=== PATIENT | male | born 1985 | race Caucasian/White ===

== ENCOUNTER 2018-10-30 21:13 | Inpatient (IN) | payer MEDICAID ==
[~2018-10-30] VITALS: Ht 170.2 cm; Wt 76.2 kg
[2018-10-30 21:15] VITALS: BP 107/58
--- NOTE | 2018-10-30 21:17 | NUR ---
PT [facility]. TAKEN TO BED 2
--- NOTE | 2018-10-30 21:17 | NUR ---
To bed 2 via stretcher.
--- NOTE | 2018-10-30 21:18 | NUR ---
PATIENT PRESENTS ER WITH C/O SEIZURES TODAY. PT FAMILY STATED THAT PT HAD A FEW SEIZURES TODAY. PT HAS HX OF SEIZURES. PT HAS HX OF DRINKING ALCOHOL. PT DID NOT HAVE LOC. KNA. PT IS A/O X 4. PATIENT STATES PAIN OF 0/10 AT THIS TIME; VSS; PATIENT POSITIONED FOR COMFORT; HOB ELEVATED; BEDRAILS UP X2; BED DOWN. ER MD MADE AWARE OF PT STATUS.
[2018-10-30] MEDS ORDERED: NACL 0.9% 1,000 ML IV ONE (21:20)
[2018-10-30 21:52] LABS: BASOPHILS % (AUTO) 0.1 % (0.0-2.0); EOSINOPHILS % (AUTO) 0.1 % (0.0-4.0); LYMPHOCYTES # (AUTO) 2.1 K/uL (2.0-11.5); LYMPHOCYTES % (AUTO) 12.9 % (20.5-51.1); MEAN CORPUSCULAR HEMOGLOBIN 29 pg (27-31); MEAN CORPUSCULAR HGB CONC 31 g/dL (33-37); MEAN CORPUSCULAR VOLUME 91.2 fL (80-94); MONOCYTES # (AUTO) 1.4 K/uL (0.8-1.0); NEUTROPHILS # (AUTO) 12.5 K/uL (1.8-7.7); NEUTROPHILS % (AUTO) 77.9 % (42.2-75.2); PLATELET COUNT (AUTO) 81 K/uL (140-450); RED BLOOD CELL COUNT(AUTO) 1.27 MIL/uL (4.20-6.10); RED CELL DISTRIBUTION WIDTH 18.2 % (11.6-13.7)
[2018-10-30 21:59] LABS: ANION GAP 12.9 (8-16); CARBON DIOXIDE 28.3 mmol/L (21-32); CHLORIDE 92 mmol/L (98-107); CREATININE 1.6 mg/dL (0.7-1.3); GFR ARICAN-AMERICAN 64 mL/min (>90); GLUCOSE 197 mg/dL (74-106); POTASSIUM 3.2 mmol/L (3.5-5.1); SODIUM SERUM 130 mmol/L (136-145); UREA NITROGEN, BLOOD 32 mg/dL (7-18)
[2018-10-30 22:03] LABS: ACETONE, SERUM NEGATIVE (NEGATIVE)
[2018-10-30 22:05] LABS: HEMATOCRIT 11.6 % (36-52); HEMOGLOBIN 3.6 g/dL (12.0-18.0)
[2018-10-30 22:07] LABS: ALBUMIN 2.1 g/dL (3.4-5.0); ASPARTATE AMINOTRANSFERASE 128 U/L (15-37); TOTAL BILIRUBIN 1.3 mg/dL (0.0-1.0)
[2018-10-30] MEDS ORDERED: levETIRAcetam 500 MG in NACL 0.9% 100 ML IV ONE (22:35)
--- NOTE | 2018-10-30 23:00 | NUR ---
PT IS UNABLE TO URINATE AT THIS TIME ER MD MADE AWARE.
[2018-10-30] MEDS ORDERED: levETIRAcetam 100 MG/ML VIAL IV ONE (23:01)
[2018-10-30] MEDS ORDERED: PANTOPRAZOLE 40 MG INJ VIAL IVP ONE (23:35)
--- NOTE | 2018-10-30 23:59 | NUR ---
PT RETURN FROM CT
[2018-10-31] VITALS (10 sets, daily range): BP systolic 95–135; BP diastolic 41–78
--- NOTE | 2018-10-31 00:39 | NUR ---
PT IS RECIEVING BLOOD TRANSFUSION, PT TOLERATED WELL.
--- NOTE | 2018-10-31 00:39 | NUR ---
Consent signed per dr. bonilla order, agreeing to administration of blood. Blood has been type and crossmatched. Blood sent from blood bank. Information on unit of blood checked against patient wristband at bedside by two nurses. All information matches. Patient or responsible alliance party informed of potential complications associated with blood transfusion. Informed of possible transfusion reaction symptoms. Aware of need to notify nurse at once of itching, shortness of breath, flushing, feeling of impending doom, or other symptoms not previously present. Vital signs taken within 5 minutes prior to initiation of transfusion. RN will remain with patient for first 15 minutes of transfusion at which time vital signs will be re-assessed.
[2018-10-31] MEDS ORDERED: ACETAMINOPHEN 325 MG TAB PO PRN (01:20)
[2018-10-31] MEDS ORDERED: HYDROcodone/APAP 5/325 MG 1 TAB TAB PO PRN (01:20)
[2018-10-31] MEDS ORDERED: NACL 0.9% 1,000 ML IV SCH (01:20)
[2018-10-31] MEDS ORDERED: ONDANSETRON 4 MG/2 ML VIAL IM/IVP PRN (01:20)
[2018-10-31] MEDS ORDERED: DOCUSATE SODIUM 100 MG GELCAP PO PRN (01:20)
[2018-10-31] MEDS ORDERED: NACL 0.9% 1,000 ML IV ONE (01:40)
[2018-10-31 01:56] LABS: MAGNESIUM 1.2 mg/dL (1.8-2.4); PHOSPHORUS 4.9 mg/dL (2.5-4.9); THYROID STIMULATING HORMONE 0.98 uIU/mL (0.34-3.74)
--- NOTE | 2018-10-31 01:57 | NUR ---
2ND UNIT PRBCs STARTED. NO REACTION NOTED AT THIS TIME.
--- NOTE | 2018-10-31 02:13 | NUR ---
NO REACTION NOTED FROM PRBCs AT THIS TIME.
--- NOTE | 2018-10-31 02:40 | NUR ---
pt finished 2nd unit of blood. pt tolerated well. pt to transfer to icu
--- NOTE | 2018-10-31 02:45 | NUR ---
Pt report given to lashonda paz. Transfer of care at this time.vss
--- NOTE | 2018-10-31 02:45 | NUR ---
Patient will be admitted to care of dr. prabhakar. Admited to ICU. Will go to room #3. Belongings list completed. Report to AIDE.
--- NOTE | 2018-10-31 02:50 | NUR ---
PT ARRIVED IN THE UNIT AT 0245 VIA GURNEY. PT LEFT TOO WEAK TO WALK FROM THE GURNEY TO BED. PT IS AWAKE AND ABLE TO MAKE NEEDS KNOWN. PERRL. VS STABLE AT THIS TIME. DENIES PAIN. NO SIGNS OF RESPIRATORY DISTRESS NOTED. LUNG SOUNDS CLEAR. PT IN ROOM AIR. S1+S2 HEARD. PULSES ARE PALPABLE. SINUS TACHYCARDIA ON MONITOR. ABDOMEN ROUND, SOFT, AND NONDISTENDED. BS ACTIVE IN ALL QUADRANTS. DENIES NAUSEA AT THIS TIME. RECEIVED PT WITH 2 PERIPHERAL IV SITES: RIGHT WRIST 18G AND LEFT AC 18G. ALL LINES ARE PATENT, INTACT, AND ASYMPTOMATIC. BLOOD RETURN NOTED. LEFT URINAL AT BEDSIDE. BED AT LOWEST POSSIBLE POSITION. CALL LIGHT WITHIN REACH.
[2018-10-31] MEDS ORDERED: POTASSIUM CHLORIDE 10 MEQ TABER PO SCH (03:00)
[2018-10-31 03:16] LABS: APPEARANCE,URINE CLEAR (CLEAR); BILIRUBIN,URINE NEGATIVE (NEGATIVE); BLOOD, URINE NEGATIVE (NEGATIVE); COLOR,URINE YELLOW (YELLOW); LEUKOCYTE ESTERASE ,URINE NEGATIVE (NEGATIVE); NITRITE, URINE NEGATIVE (NEGATIVE); UGLUCOSE NEGATIVE (NEGATIVE)
[2018-10-31 03:18] LABS: BARBITURATE, URINE NEG. ng/ml (NEG <=200); BENZODIAZEPINE, URINE NEG. ng/mL (NEG <=200); CANNABINOID, URINE NEG. ng/mL (NEG <=50); COCAINE, URINE NEG. ng/mL (NEG <=300); OPIATE, URINE NEG. ng/mL (NEG <=2000); PHENCYCLIDINE SCREEN,URINE NEG. ng/mL (NEG <=25)
[2018-10-31] MEDS ORDERED: MULTIVITAMIN-12 10 ML, THIAMINE 100 MG, MAGNESIUM SULFATE 50% 2,000 MG, FOLIC ACID 1 MG... IV ONE ×5 (03:20)
--- NOTE | 2018-10-31 03:20 | NUR ---
DR. ARRIETA AND DR. SMITH AT BEDSIDE TO SEE PT.
[2018-10-31] MEDS: DEXT 5% /NACL 0.9% 1,000 ML IV SCH ×2 (03:30→20:21)
--- NOTE | 2018-10-31 03:30 | NUR ---
CURRENTLY GIVING NS BOLUS. PER DR. ARRIETA, AFTER THE BOLUS HANG THE BANANA BAG. MAINTENANCE FLUIDS TO BE STARTED AFTER BANANA BAG.
[2018-10-31] MEDS ORDERED: POTASSIUM CHLORIDE 10 MEQ TABER PO ONE ×2 (03:58→04:00)
[2018-10-31] MEDS ORDERED: MULTIVITAMIN-12 10 ML, THIAMINE 100 MG, MAGNESIUM SULFATE 50% 2,000 MG, FOLIC ACID 1 MG... IV SCH ×10 (04:00)
[2018-10-31] MEDS ORDERED: MAG SULF 2000 MG/WATER PREMIX 100 ML IV ONE (04:01)
[2018-10-31] MEDS: MAG SULF 2000 MG/WATER PREMIX 50 ML IV SCH ×2 (04:03→05:45)
[2018-10-31] MEDS ORDERED: MULTIVITAMIN-12 10 ML VIAL IV ONE (04:10)
[2018-10-31] MEDS ORDERED: THIAMINE 200 MG/2 ML VIAL ONE (04:11)
[2018-10-31] MEDS ORDERED: FOLIC ACID 5 MG/ML SYR ONE (04:11)
[2018-10-31] MEDS ORDERED: KEP500 PO (04:16)
[2018-10-31] MEDS ORDERED: DEXTROSE 50% 50 ML SYR IVP PRN (04:55)
[2018-10-31] MEDS ORDERED: INSULIN LISPRO SLIDING SCALE 100 UNITS/ML VIAL SUBQ PRN (04:55)
--- NOTE | 2018-10-31 05:17 | NUR ---
CALLED RESIDENT DOCTOR, DR. ARRIETA, TO FOLLOW-UP WITH THE ORDER OF MAGNESIUM SULFATE 50% 2,00MG THAT IS NEEDED FOR BANANA BAG
[2018-10-31] MEDS ORDERED: MAG SULF 2000 MG/WATER PREMIX 50 ML IV ONE (05:37)
[2018-10-31 05:42] LABS: BASOPHILS % (AUTO) 0.1 % (0.0-2.0); EOSINOPHILS % (AUTO) 0.1 % (0.0-4.0); LYMPHOCYTES # (AUTO) 2.2 K/uL (2.0-11.5); LYMPHOCYTES % (AUTO) 18.5 % (20.5-51.1); MEAN CORPUSCULAR HEMOGLOBIN 29 pg (27-31); MEAN CORPUSCULAR HGB CONC 32 g/dL (33-37); MEAN CORPUSCULAR VOLUME 88.7 fL (80-94); MONOCYTES # (AUTO) 1.4 K/uL (0.8-1.0); NEUTROPHILS # (AUTO) 8.1 K/uL (1.8-7.7); NEUTROPHILS % (AUTO) 69.3 % (42.2-75.2); PLATELET COUNT (AUTO) 64 K/uL (140-450); RED BLOOD CELL COUNT(AUTO) 1.99 MIL/uL (4.20-6.10); RED CELL DISTRIBUTION WIDTH 15.4 % (11.6-13.7); WHITE BLOOD COUNT (AUTO) 11.7 K/uL (4.8-10.8)
[2018-10-31 06:20] LABS: CHOL/HDL RATIO 5.3 (1-4.5)
[2018-10-31 06:27] LABS: HEMATOCRIT 17.6 % (36-52); HEMOGLOBIN 5.7 g/dL (12.0-18.0)
[2018-10-31] MEDS: BLOOD GLUCOSE MONITORING 1 DEV DEV FS SCH ×4 (06:32→21:26)
[2018-10-31 06:53] LABS: PROTHROMBIN TIME 15.6 secs (10.8-13.4)
--- NOTE | 2018-10-31 07:23 | NUR ---
REPORT GIVEN TO MORNING RN, MIKE, FOR CONTINUITY OF CARE. PT IN STABLE CONDITION AT THIS TIME.
--- NOTE | 2018-10-31 07:30 | NUR ---
RECEIVED REPORT FROM SALES OFFICE MANAGER NURSE AT BEDSIDE, PT IS AAOX4, ABLE TO FOLLOW COMMANDS AND MAKE NEEDS KNOW, VSS, DENIES PAIN, NO S/S OF DISTRESS, CLEAR LUNG SOUNDS SUSANNE. ON RA, O2 SAT 100%, DENIES CHEST PAIN, SR ON SALES AND CATERING COORDINATOR, SOFT ABDOMEN WITH ACTIVE BOWEL SOUNDS, CONTINENT WITH B&B'S, ABLE TO MOVE ALL EXTREMITIES. SKIN IS INTACT, WARM AND DRY TO TOUCH, IV SITE TO RIGHT HAND, 18GA, PATENT, RUNNING BANANA BAG AT 70 ML/HR. HOB ELEVATED 30 DEGREES, POSITION CHANGED FOR COMFORT, SAFETY MEASURES IN PLACE, WILL CONTINUE TO MONITOR.
--- NOTE | 2018-10-31 07:52 | NUR ---
PATIENT HAS BEEN SCREENED AND CATEGORIZED HIGH NUTRITION RISK. PATIENT WILL BE SEEN WITHIN 1-2 DAYS OF ADMISSION. 10/31/18-11/01/[address]
[2018-10-31] MEDS: chlordiazePOXIDE 25 MG CAP PO SCH ×2 (08:56→13:00)
[2018-10-31] MEDS: DOCUSATE SODIUM 100 MG GELCAP PO SCH (08:56)
[2018-10-31] MEDS ORDERED: PANTOPRAZOLE 40 MG INJ VIAL IVP SCH ×2 (09:00→13:10)
[2018-10-31] MEDS ORDERED: levETIRAcetam 500 MG in NACL 0.9% 100 ML IV SCH (09:00)
[2018-10-31] MEDS ORDERED: MAG SULF 2000 MG/WATER PREMIX 50 ML IV SCH ×2 (09:00→18:00)
[2018-10-31] MEDS ORDERED: THIAMINE 200 MG/2 ML VIAL IM SCH (09:00)
--- NOTE | 2018-10-31 09:00 | NUR ---
INFORMED BLOOD BANK THAT DOCTOR ORDERED BLOOD TRANSFUSION FOR PT, WILL LET ME KNOW WHEN BLOOD IS READY.
[2018-10-31 10:12] LABS: ANION GAP 9.4 (8-16); CARBON DIOXIDE 29.8 mmol/L (21-32); CREATININE 0.8 mg/dL (0.7-1.3); POTASSIUM 3.2 mmol/L (3.5-5.1)
--- NOTE | 2018-10-31 10:30 | NUR ---
DR. VAZQUEZ CAME IN TO SEE PT AT BEDSIDE, WILL FOLLOW UP WITH NEW ORDERS.
--- NOTE | 2018-10-31 11:00 | NUR ---
PT HAD A SMALL STOOL COLLECTED AND SENT TO LAB
--- NOTE | 2018-10-31 11:15 | NUR ---
PT IS ACCIDENTAL PULLED OUT IV SITE TO RIGHT HAND, MODERATED BLEEDING NOTED, COVERED WITH DRESSING, PRESSURE PROVIDED, BLEEDING STOPPED.
--- NOTE | 2018-10-31 11:54 | NUR ---
CONSENT FOR EGD SIGNED BY PT, TRANSLATED BY [facility] ID [id number]
[2018-10-31] MEDS ORDERED: fentaNYL 0.05 MG/ML VIAL ONE (12:16)
[2018-10-31] MEDS ORDERED: MIDAZOLAM 2 MG/2 ML VIAL ONE (12:16)
--- NOTE | 2018-10-31 12:30 | NUR ---
FIRST RBC TRANSFUSION STARTED, VSS, NO S/S OF DISTRESS, WILL CONTINUE TO MONITOR.
--- NOTE | 2018-10-31 12:46 | NUR ---
DR. ANA DENTON DOING EGD AT BEDSIDE WITH GI LAB TEAM.
[2018-10-31] MEDS: PANTOPRAZOLE 80 MG in NACL 0.9% 100 ML IV SCH ×2 (12:55→23:17)
[2018-10-31] MEDS ORDERED: POTASSIUM CHLORIDE 40 MEQ, LIDOCAINE MPF 1% - 5 mL VIAL 25 MG in NACL 0.9% 250 ML IV SCH (13:00)
[2018-10-31] MEDS ORDERED: EPINEPHrine PFS 0.1 MG/ML SYR IVP ONE (13:12)
--- NOTE | 2018-10-31 13:15 | NUR ---
PT IS CONFUSED, STATED HE IS GOING TO FISHING, TRYING TO GET UP FROM BED AND PULLING OUT THE TUBINGS, DR. JOHNSON MADE AWARE.
[2018-10-31] MEDS: MORPHINE SULFATE 2 MG/ML SYR IVP PRN ×2 (13:25→21:04)
[2018-10-31] MEDS: LORazepam 2 MG/ML VIAL IVP PRN ×3 (13:34→20:10)
--- NOTE | 2018-10-31 13:35 | NUR ---
PT IS STILL CONFUSED, RESTLESSNESS, MORPHINE AND ATIVAN GIVEN TO CALM PT DOWN PER DR. BARNEY.
--- NOTE | 2018-10-31 14:00 | NUR ---
10/31/18 RD INITIAL ASSESSMENT COMPLETED PLEASE REFER TO NUTRITION ASSESSMENT UNDER CARE ACTIVITY FOR ESTIMATED NUTRITIONAL NEEDS. 1. CONTINUE NPO DIET UNTIL MEDICALLY APPROPRIATE TO BEGIN NUTRITION 2. WHEN/IF PATIENT STABLE TO BEGIN NUTRITION, RECOMMEND [address] TO FOLLOW-UP 3-5 DAYS, MODERATE RISK [address]
--- NOTE | 2018-10-31 14:30 | NUR ---
PT IS CALM AND ASLEEP IN BED AT THIS TIME, NO S/S OF DISTRESS, VSS.
--- NOTE | 2018-10-31 15:30 | NUR ---
FIRST UNIT RBC COMPLETED, NO ADVERSE REACTION NOTED, PT IS ASLEEP IN BED, NO S/S OF DISTRESS, VSS.
--- NOTE | 2018-10-31 15:55 | NUR ---
2ND UNIT OF RBC STARTED, VSS, WILL CONTINUE TO MONITOR.
--- NOTE | 2018-10-31 16:00 | NUR ---
PT IS ASLEEP IN BED, NO S/S OF DISTRESS, PM CARE PROVIDED, VSS.
--- NOTE | 2018-10-31 18:15 | NUR ---
2UNITS OF RBC COMPLETED, PT TOLERATED WELL, NO ADVERSE EFFECTS NOTED.
[2018-10-31 19:12] LABS: LYMPHOCYTES # (AUTO) 1.4 K/uL (2.0-11.5); MEAN CORPUSCULAR VOLUME 88.9 fL (80-94); MONOCYTES # (AUTO) 1.4 K/uL (0.8-1.0)
--- NOTE | 2018-10-31 19:15 | NUR ---
REPORT GIVEN TO BELT FIXER NURSE AT BEDSIDE FOR CONTINUE OF CARE, PT IS VERY CONFUSED, INCONTINENT AT THIS TIME.
[2018-10-31 19:18] LABS: BASOPHILS % (AUTO) 0.2 % (0.0-2.0); EOSINOPHILS # (AUTO) 0.1 K/uL (0-0.4); EOSINOPHILS % (AUTO) 0.6 % (0.0-4.0); HEMATOCRIT 23.8 % (36-52); HEMOGLOBIN 7.9 g/dL (12.0-18.0); LYMPHOCYTES % (AUTO) 15.1 % (20.5-51.1); MEAN CORPUSCULAR HEMOGLOBIN 29 pg (27-31); MEAN CORPUSCULAR HGB CONC 33 g/dL (33-37); MONOCYTES % (AUTO) 15.1 % (1.7-9.3); NEUTROPHILS # (AUTO) 6.3 K/uL (1.8-7.7); RED BLOOD CELL COUNT(AUTO) 2.68 MIL/uL (4.20-6.10); RED CELL DISTRIBUTION WIDTH 14.7 % (11.6-13.7); WHITE BLOOD COUNT (AUTO) 9.1 K/uL (4.8-10.8)
[2018-10-31 19:21] LABS: PLATELET COUNT (AUTO) 53 K/uL (140-450)
--- NOTE | 2018-10-31 19:30 | NUR ---
RECEIVED BEDSIDE REPORT FROM MORNING NURSE, PATIENT CONFUSED, ABLE TO VERBALLY RESPONSIVE BUT ONLY ROMANSH SPEAKING. VSS, NO FEVER, NO ACUTE DISTRESS NOTED. BILATERAL LUNGS SOUND CLEAR, O2 SAT 100% WITH 2L/M O2 VIA NC. PERIPHERAL LINES TO LEFT AC 18G AND RIGHT HAND 20G, RUNNING WITH BANANA BAG 70ML/HR AND PROTONIX 10ML/HR. LINES ARE INTACT AND PATENT. ACTIVE BOWEL SOUND FROM ALL 4QUADS. ABLE TO MOVE ALL EX'S BUT SLIGHTLY WEAKNESS NOTED. HOB ELEVATED, BED IN LOW POSITION, CALL LIGHT WITHIN REACH, WILL CONTINUE TO MONITOR.
[2018-10-31] MEDS ORDERED: levETIRAcetam 500 MG TAB PO SCH (21:00)
[2018-10-31] MEDS: LORazepam 2 MG/ML VIAL IVP SCH (21:03)
--- NOTE | 2018-10-31 21:30 | NUR ---
ADMINISTERED SCHEDULED MEDICATIONS ORDERED. BS CHECKED 110 NOTED. PATIENT HAD 2 TIMES INCONTINENT URINE OUT PUT NOTED. PATIENT STILL CONFUSED, TRYING TO GET OUT OF BED. REORIENTED AT THIS TIME. PATIENT COMPLAINT ABOUT GENERALIZED ITCHING, ADMINISTERED PRN PAIN MEDICATION ORDERED. WILL CONTINUE TO MONITOR.
--- NOTE | 2018-10-31 23:30 | NUR ---
PATIENT IN ASLEEP AT THIS TIME. NO ACUTE DISTRESS NOTED. VSS. WILL CONTINUE TO MONITOR.
[2018-11-01] VITALS (10 sets, daily range): BP systolic 97–118; BP diastolic 48–82
--- NOTE | 2018-11-01 01:30 | NUR ---
PATIENT WOKE UP, STILL CONFUSED NOTED. VSS. NO ACUTE DISTRESS NOTED. WILL CONTINUE TO MONITOR.
[2018-11-01] MEDS: MORPHINE SULFATE 2 MG/ML SYR IVP PRN (02:24)
--- NOTE | 2018-11-01 02:30 | NUR ---
ADMINISTERED PRN PAIN MEDICATION ORDERED DUE TO GENERALIZES ITCHING 04/09 NOTED. WILL CONTINUE TO MONITOR.
--- NOTE | 2018-11-01 04:20 | NUR ---
DR. SMITH AT BEDSIDE TO CHECK THE PATIENT. WILL FOLLOW ORDER.
--- NOTE | 2018-11-01 04:30 | NUR ---
PATIENT HAD INCONTINENT URINATION NOTED. STILL CONFUSED. WILL CONTINUE TO MONITOR.
[2018-11-01 05:13] LABS: BASOPHILS % (AUTO) 0.1 % (0.0-2.0); EOSINOPHILS # (AUTO) 0.1 K/uL (0-0.4); EOSINOPHILS % (AUTO) 1.1 % (0.0-4.0); HEMATOCRIT 24.8 % (36-52); HEMOGLOBIN 8.2 g/dL (12.0-18.0); LYMPHOCYTES % (AUTO) 16.8 % (20.5-51.1); MEAN CORPUSCULAR HEMOGLOBIN 29 pg (27-31); MEAN CORPUSCULAR HGB CONC 33 g/dL (33-37); MEAN CORPUSCULAR VOLUME 88.6 fL (80-94); MONOCYTES # (AUTO) 0.8 K/uL (0.8-1.0); MONOCYTES % (AUTO) 13.2 % (1.7-9.3); NEUTROPHILS # (AUTO) 4.1 K/uL (1.8-7.7); NEUTROPHILS % (AUTO) 68.8 % (42.2-75.2); PLATELET COUNT (AUTO) 54 K/uL (140-450); RED CELL DISTRIBUTION WIDTH 15.3 % (11.6-13.7)
[2018-11-01] MEDS: LORazepam 2 MG/ML VIAL IVP SCH ×3 (05:15→20:41)
--- NOTE | 2018-11-01 05:30 | NUR ---
ADMINISTERED SCHEDULED ATIVAN. PATIENT IN SLEEP, AROUSABLE TO VOICE. VSS. NO ACUTE DISTRESS NOTED. WILL CONTINUE TO MONITOR.
[2018-11-01 05:42] LABS: ANION GAP 5.6 (8-16); CARBON DIOXIDE 27.7 mmol/L (21-32); CREATININE 0.6 mg/dL (0.7-1.3); POTASSIUM 3.3 mmol/L (3.5-5.1)
--- NOTE | 2018-11-01 06:30 | NUR ---
AT BEDSIDE TO CHECK THE PATIENT AT THIS TIME. RECEIVED ORO CATH ORDER. ORO CATH IN PLACED. PATIENT TOLERATED WELL. WILL CONTINUE TO MONITOR.
[2018-11-01] MEDS ORDERED: POTASSIUM CHLORIDE 40 MEQ, LIDOCAINE MPF 1% - 5 mL VIAL 25 MG in NACL 0.9% 250 ML IV ONE (06:35)
[2018-11-01] MEDS: BLOOD GLUCOSE MONITORING 1 DEV DEV FS SCH ×4 (07:17→20:41)
--- NOTE | 2018-11-01 07:30 | NUR ---
RECEIVED PT FROM PM NURSE, PT SLEEPING BUT AROUSABLE. BEDSIDE MONITOR SHOWS SR.RA, NO S/S OF SOB, LUNG SOUND CLEAR. PT HAS IV TO RIGHT FA # 20 AND LEFT AC # 18, SITE INTACT AND PATENT. PT ON D5 NS AT 60 MLS/HR AND PROTONIX AT 10 MLS/HR. PT NPO, F/C IN PLACE WITH YELLOW URINE NOTED. INTRODUCED MYSELF, POC EXPLAINED, WILL CONTINUE TO MONITOR.
[2018-11-01] MEDS ORDERED: POTASSIUM CHLORIDE 40 MEQ, LIDOCAINE MPF 1% - 5 mL VIAL 25 MG in NACL 0.9% 250 ML IV SCH (08:00)
[2018-11-01] MEDS: PANTOPRAZOLE 80 MG in NACL 0.9% 100 ML IV SCH (08:40)
[2018-11-01] MEDS: DOCUSATE SODIUM 100 MG GELCAP PO SCH (09:00)
[2018-11-01] MEDS ORDERED: levETIRAcetam 500 MG in NACL 0.9% 100 ML IV SCH (09:00)
[2018-11-01] MEDS ORDERED: FOLIC ACID 1 MG TAB PO SCH (09:00)
[2018-11-01] MEDS ORDERED: MULTIVITAMIN 1 TAB PO SCH (09:00)
--- NOTE | 2018-11-01 09:15 | NUR ---
PT LEFT FOR HEAD CT, ACCOMPANIED WITH WALLACE AND RN. CAME BACK TO ROOM WITHOUT ACCIDENT AT THIS TIME.
[2018-11-01] MEDS ORDERED: LACTULOSE 20 GM/30 ML UDC PO SCH ×2 (10:57→21:00)
[2018-11-01] MEDS ORDERED: PROBIOTIC SCREEN 1 EA MISC MC PRN (11:40)
[2018-11-01] MEDS ORDERED: MULTIVITAMIN-12 10 ML, THIAMINE 100 MG, MAGNESIUM SULFATE 50% 2,000 MG, FOLIC ACID 1 MG... IV SCH ×5 (12:00)
--- NOTE | 2018-11-01 12:36 | NUR ---
S.T. BEDSIDE SWALLOW EVAL COMPLETED Please see report for details. Pt presents with adequate oropharyngeal swallow function. No overt s/s aspiration observed across all textures. Pt does, however, demonstrate UE discoordination for self-feeding. Recommend: 1. Advance to regular chopped diet, thin liquids okay. 2. P.O. meds as tolerated. 3. Nsg to assist with tray set up to promote self feeding. No further tx indicated at this time. DC to nsg care. Time [id number]
--- NOTE | 2018-11-01 13:00 | NUR ---
HOLD ATIVAN DUE TO PT SLEEPY SINCE THIS MORNING, CHARGE NURSE MADE AWARE OF IT.
--- NOTE | 2018-11-01 18:00 | NUR ---
PT HAD BLACK LOOSE BM. CLEANED PT.
--- NOTE | 2018-11-01 18:40 | NUR ---
PT RECEIVED FROM ICU. PT IS AWAKE AND ALERT, AND AMBULATORY WITH STAND-BY ASSIST. LAO-SPEAKING ONLY. PT IS ON ROOM AIR, SKIN INTACT. SCD'S ON. TWO IV SITES NOTED: L AC 18 G, AND R HAND 20 G. D5NS INFUSING AT 70 ML/HR, AND BANANA BAG INFUSING AT 70 ML/HR. FALL PRECAUTIONS AND SEIZURE PRECAUTIONS PUT INTO PLACE. CALL LIGHT GIVEN WITHIN REACH. Addendum: 11/01/18 at 1942 by Suzi Archer RN TRANSFER VITAL SIGNS (18:45) BP 109/62, HR 90, TEMP 98.9, O2 98% ON RA, RR 16.
--- NOTE | 2018-11-01 18:45 | NUR ---
PT TRANSFERRED TO TELE 111A . REPORT GIVEN TO RICKSHAW DRIVER. ALL PERSONAL BELONGINGS WITH PT.
--- NOTE | 2018-11-01 19:30 | NUR ---
RECEIVED BEDSIDE REPORT FROM RN [place], PATIENT IS ICU TRANSFER, IN BED, ON RA, NO SIGNS OF RESP DISTRESS, FAMILY AT BEDSIDE, IV IN LEFT AC 18G AND RIGHT HAND 20G PATENT AND DRESSING INTACT. V/S TAKEN NOTED BP 109/62 HR 90 RR A6 O2SAT 98% RA TEMP 98.9 DENIES PAIN. SKIN INTACT, LUNG SOUNDS CLEAR, ORO CATH IN PLACE. SCD'S ON. EXPLAINED PLAN OF CARE UPDATED BORED WILL CONTINUE TO MONITOR. BED ALARM ON.
--- NOTE | 2018-11-01 19:30 | NUR ---
PT ENDORSED TO RADON INSPECTOR IN STABLE CONDITION
[2018-11-01] MEDS: PANTOPRAZOLE 40 MG TABEC PO SCH (20:41)
[2018-11-01] MEDS: levETIRAcetam 500 MG TAB PO SCH (20:41)
--- NOTE | 2018-11-01 21:00 | NUR ---
ASKED DR PENALOZA IF OKAY TO INFUSE MULTI VITAMIN BAG AT 70 ML AND DEXTROSE/NS AT 70 ML AT THE [address] TIME[address] DR PENALOZA SAID ITS OKAY. ALSO NOTIFIED OF K 3.3 % MG 1.9 AND UNSURE IF K DUR AND MG RIDER WERE GIVEN ON 10/31/18. DR PENALOZA SAID HE WILL LOOK INTO IT. NO NEW ORDERS AT THIS TIME.
--- NOTE | 2018-11-01 23:00 | NUR ---
PATIENT AMBULATED TO RESTROOM, UNSTEADY GAIT, ALMOST FELL WHEN STANDING UP ACCORDING TO REINSURANCE ANALYST. PLACED BEDSIDE COMMODE AT BEDSIDE. PLACED ARM BOARD ON PATIENT DUE TO PATIENT CONTINUING TO BEND ARM AT AC AND HIGH PRESSURE ALARM GOES OFF.
[2018-11-02] VITALS: BP 110/50
--- NOTE | 2018-11-02 00:16 | NUR ---
SPOKE WITH RESIDENTS REGARDING LEAKING ORO CATH, ORDER TO D/C ORO.
--- NOTE | 2018-11-02 01:07 | NUR ---
D/C ORO, 10 ML OUT, CATH INTACT. 250 ML DARK URINE. EXPLAINED HOW TO USE URINAL OR TO ASK FOR ASSISTANCE TO GET UP AND USE RESTROOM, CALL LIGHT WITHIN REACH, BED ALARM ON.
[2018-11-02] MEDS: DEXT 5% /NACL 0.9% 1,000 ML IV SCH ×2 (02:30→16:48)
[2018-11-02 04:00] VITALS: BP 118/60
--- NOTE | 2018-11-02 04:00 | NUR ---
V/S TAKEN ALL WITHIN BASELINE WILL CONTINUE TO MONITOR.
[2018-11-02] MEDS: LORazepam 2 MG/ML VIAL IVP SCH ×3 (05:33→20:07)
[2018-11-02] MEDS: BLOOD GLUCOSE MONITORING 1 DEV DEV FS SCH ×4 (05:33→19:57)
--- NOTE | 2018-11-02 05:34 | NUR ---
PATIENT REFUSED BLOOD GLUCOSE CHECK, PATIENT MOVED HAND AWAY WHEN TRYING TO CHECK GLUCOSE.
--- NOTE | 2018-11-02 07:18 | NUR ---
ENDORSED PATIENT TO DAY SHIFT NURSE SHELLEY, PATIENT STABLE.
--- NOTE | 2018-11-02 07:20 | NUR ---
RECEIVED BEDSIDE REPORT FROM WRINGER OPERATOR NURSE. PATIENT IS AOX4. DENIES OF PAIN. NO SIGNS OF DISTRESS. ROOM AIR. IV ON L AC 18G, NOT INFUSING. IV ON R HAND 20G, INFUSING PER MD ORDER. IV SITES ARE DRY AND CLEAN. ABLE TO AMBULATE WITH ASSISTANCE. SKIN INTACT, DRY AND CLEAN. RESPIRATION IS EVEN AND UNLABORED, CLEAR ON AUSCULTATION. SCD APPLIED. SAFETY MEASURES IN PLACE. BED IN LOW POSITION, CALL LIGHT WITHIN REACH. REVIEW PLAN OF CARE WITH PATIENT, PATIENT NODDED HIS HEAD. WILL CONTINUE TO MONITOR.
[2018-11-02 07:34] LABS: BASOPHILS % (AUTO) 0.4 % (0.0-2.0); EOSINOPHILS # (AUTO) 0.1 K/uL (0-0.4); EOSINOPHILS % (AUTO) 1.1 % (0.0-4.0); HEMATOCRIT 23.9 % (36-52); LYMPHOCYTES % (AUTO) 20.2 % (20.5-51.1); MEAN CORPUSCULAR HEMOGLOBIN 30 pg (27-31); MEAN CORPUSCULAR HGB CONC 34 g/dL (33-37); MEAN CORPUSCULAR VOLUME 89.1 fL (80-94); MONOCYTES # (AUTO) 0.7 K/uL (0.8-1.0); MONOCYTES % (AUTO) 13.4 % (1.7-9.3); NEUTROPHILS # (AUTO) 3.2 K/uL (1.8-7.7); NEUTROPHILS % (AUTO) 64.9 % (42.2-75.2); PLATELET COUNT (AUTO) 63 K/uL (140-450); RED BLOOD CELL COUNT(AUTO) 2.68 MIL/uL (4.20-6.10); RED CELL DISTRIBUTION WIDTH 15.7 % (11.6-13.7)
[2018-11-02 07:50] LABS: ANION GAP 1.7 (8-16); CARBON DIOXIDE 26.7 mmol/L (21-32); CREATININE 0.6 mg/dL (0.7-1.3); POTASSIUM 3.4 mmol/L (3.5-5.1)
[2018-11-02 07:56] LABS: PHOSPHORUS 2.8 mg/dL (2.5-4.9)
[2018-11-02 08:00] VITALS: BP 94/61
--- NOTE | 2018-11-02 08:16 | NUR ---
PT ASSISTED TO BATHROOM, AMBULATES WITH ASSIST, LARGE LOOSE BM, BED LINEN CHANGED, GOWN CHANGED, PT RETURNED TO CHAIR FOR BREAKFAST.
[2018-11-02] MEDS: PANTOPRAZOLE 40 MG TABEC PO SCH ×2 (09:09→20:07)
[2018-11-02] MEDS: DOCUSATE SODIUM 100 MG GELCAP PO SCH (09:09)
[2018-11-02] MEDS: levETIRAcetam 500 MG TAB PO SCH ×2 (09:09→20:06)
[2018-11-02] MEDS ORDERED: POTASSIUM CHLORIDE 10 MEQ TABER PO ONE (09:40)
[2018-11-02] MEDS ORDERED: POTASSIUM CHLORIDE 10 MEQ TABER PO SCH (10:00)
--- NOTE | 2018-11-02 11:38 | NUR ---
ASSISTED PATIENT TO USED THE BEDSIDE COMMODE. CHANGED SOILED LINENS. TRANSFERRED PATIENT BACK ON BED. APPLIED SCD, AND TURNED ON BED ALARM. INSTRUCTED PATIENT TO USE THE CALL LIGHT IF HE NEEDS TO USE THE COMMODE. BED IN LOW POSITION, CALL LIGHT WITHIN REACH. WILL CONTINUE TO MONITOR.
[2018-11-02 12:00] VITALS: BP 114/70
--- NOTE | 2018-11-02 12:58 | NUR ---
ASSISTED PATIENT TO USE THE BEDSIDE COMMODE. NO SIGNS OF DISTRESS NOTED. DENIES OF PAIN. WILL CONTINUE TO MONITOR.
[2018-11-02] MEDS: LACTULOSE 20 GM/30 ML UDC PO SCH ×2 (13:32→17:00)
--- NOTE | 2018-11-02 13:45 | NUR ---
ADMINISTERED MEDS PER MD ORDER. PATIENT TOLERATED WELL. NO SIGNS OF DISTRESSES NOTED. D/C IV ON L AC. IV TIP INTACT WITH NO BLEEDING ON IV SITE. WILL CONTINUE TO MONITOR.
[2018-11-02 16:00] VITALS: BP 112/66
--- NOTE | 2018-11-02 17:05 | NUR ---
NEW IV INSERTED TO RIGHT FA 20G, PT LEIA WELL, IVF RESTARTED.
--- NOTE | 2018-11-02 18:05 | NUR ---
PT SITTING UP IN BED EATING DINNER IN NAD, RESP EVEN UNLABORED, NO C/O PAIN OR DISCOMFORT.
--- NOTE | 2018-11-02 19:34 | NUR ---
ENDORSED PATIENT TO STEAM DRIER TENDER NURSE FOR CONTINUITY OF CARE. PATIENT IS IN STABLE CONDITION.
--- NOTE | 2018-11-02 19:34 | NUR ---
RECEIVED BEDSIDE REPORT FROM BLANCA FREEMAN, PATIENT IN BED, ON RA, IV IN RIGHT FA 20G, BLEEDING, IV FLUSHED AND AREA CLEANED, IV INFUSING DEXTROSE/NS AT 70 ML/HR. V/S TAKEN, BP 113/70. WILL GIVE DUE MEDICATIONS, PATIENT DENIES PAIN. UPDATED BORED, EXPLAINED PLAN OF CARE WILL CONTINUE TO MONITOR.
[2018-11-02 20:00] VITALS: BP 113/70
--- NOTE | 2018-11-02 20:07 | NUR ---
DUE MEDICATIONS GIVEN, EDUCATION PROVIDED. PLACED SCD BACK ON. EXPLAINED TO USE CALL LIGHT IF NEED ASSISTANCE. BED ALARM ON. WILL CONTINUE TO MONITOR.
--- NOTE | 2018-11-02 22:36 | NUR ---
PATIENT AMBULATED TO RESTROOM, UNSTEADY GAIT, NEEDS ONE PERSON ASSIST. HELPED BACK INTO BED, BED ALARM ON, CALL LIGHT WITHIN REACH.
[2018-11-03] VITALS: BP 110/69
--- NOTE | 2018-11-03 00:30 | NUR ---
V/S TAKEN BP 110/69 HR 88, PATIENT DENIES PAIN. WILL CONTINUE TO MONITOR.
--- NOTE | 2018-11-03 02:00 | NUR ---
BED ALARM OFF, PATIENT GETTING OUT OF BED TO USE RESTROOM, UNSTEADY GAIT, NEEDS ONE PERSON ASSIST, HELPED BACK INTO BED, BED ALARM ON, CALL LIGHT WITHIN REACH. EXPLAINED TO CALL FOR HELP WHEN NEEDING TO GET UP.
[2018-11-03 03:56] VITALS: BP 115/67
--- NOTE | 2018-11-03 04:00 | NUR ---
BED ALARM OFF, PATIENT GETTING OUT OF BED TO USE RESTROOM, ASSISTED BACK INTO BED, BED ALARM ON, CALL LIGHT WITHIN REACH. TOLD TO CALL FOR HELP WHEN NEEDING TO GET UP. PATIENT SAID OKAY.
--- NOTE | 2018-11-03 04:08 | NUR ---
V/S TAKEN BP 115/67 HR 79 DENIES PAIN
[2018-11-03] MEDS: LORazepam 2 MG/ML VIAL IVP SCH ×2 (05:14→13:00)
[2018-11-03] MEDS: DEXT 5% /NACL 0.9% 1,000 ML IV SCH (05:15)
--- NOTE | 2018-11-03 05:30 | NUR ---
DUE MEDICATIONS GIVEN, PATIENT TOLERATED WELL, BG 103 NO COVERAGE NEEDED.
[2018-11-03] MEDS: BLOOD GLUCOSE MONITORING 1 DEV DEV FS SCH ×2 (06:21→12:28)
--- NOTE | 2018-11-03 07:05 | NUR ---
PATIENT WAS FOUND SITTING NAKED ON BEDSIDE. HE TOOK OFF HIS GOWN AND THREW ALL BLANKET ON THE FLOOR. HE POURED WATER AROUND THE BEDSIDE. HE PULLED OFF HIS IV. ASSESSED IV SITE, NO BLEEDING NOTED. APPLIED GUARD ON IV SITE. CHANGED PATIENT INTO CLEAN GOWN, AND CHANGED ALL THE WET LINENS. CLEANED AND DRIED THE FLOOR. INSTRUCTED PATIENT TO USE THE CALL LIGHT FOR ASSISTANCE.
[2018-11-03 07:17] LABS: ANION GAP 7.7 (8-16); CARBON DIOXIDE 25.8 mmol/L (21-32); CREATININE 0.6 mg/dL (0.7-1.3); POTASSIUM 3.5 mmol/L (3.5-5.1)
[2018-11-03 07:20] LABS: MAGNESIUM 1.8 mg/dL (1.8-2.4); PHOSPHORUS 2.9 mg/dL (2.5-4.9)
--- NOTE | 2018-11-03 07:28 | NUR ---
ENDORSED PATIENT TO DAY SHIFT NURSE, PATIENT STABLE.
--- NOTE | 2018-11-03 07:29 | NUR ---
RECEIVED BEDSIDE REPORT FROM GALLEY BOY NURSE. PATIENT IS AOX4. NEEDS MINIMAL ASSISTANCE WITH AMBULATE AND MOVE FROM BED TO BEDSIDE COMMODE. NO SIGNS OF DISTRESS NOTED. ROOM AIR. SKIN WARM, CLEAN AND DRY. REVIEWED PLAN OF CARE WITH PATIENT, PATIENT VERBALIZED UNDERSTANDING. SAFETY MEASURES IN PLACE. BED IN LOW POSITION, CALL LIGHT WITHIN REACH. WILL CONTINUE TO MONITOR.
[2018-11-03 07:39] LABS: BASOPHILS % (AUTO) 0.4 % (0.0-2.0); EOSINOPHILS # (AUTO) 0.1 K/uL (0-0.4); EOSINOPHILS % (AUTO) 1.2 % (0.0-4.0); HEMATOCRIT 24.7 % (36-52); HEMOGLOBIN 8.1 g/dL (12.0-18.0); LYMPHOCYTES % (AUTO) 21.5 % (20.5-51.1); MEAN CORPUSCULAR HEMOGLOBIN 29 pg (27-31); MEAN CORPUSCULAR HGB CONC 33 g/dL (33-37); MEAN CORPUSCULAR VOLUME 88.7 fL (80-94); MONOCYTES # (AUTO) 0.7 K/uL (0.8-1.0); MONOCYTES % (AUTO) 16.1 % (1.7-9.3); NEUTROPHILS # (AUTO) 2.8 K/uL (1.8-7.7); NEUTROPHILS % (AUTO) 60.8 % (42.2-75.2); PLATELET COUNT (AUTO) 76 K/uL (140-450); RED BLOOD CELL COUNT(AUTO) 2.79 MIL/uL (4.20-6.10); RED CELL DISTRIBUTION WIDTH 15.6 % (11.6-13.7); WHITE BLOOD COUNT (AUTO) 4.6 K/uL (4.8-10.8)
[2018-11-03 08:00] VITALS: BP 115/73
[2018-11-03] MEDS: LACTULOSE 20 GM/30 ML UDC PO SCH ×2 (09:00→13:00)
[2018-11-03] MEDS: DOCUSATE SODIUM 100 MG GELCAP PO SCH (09:00)
[2018-11-03] MEDS: levETIRAcetam 500 MG TAB PO SCH (09:14)
[2018-11-03] MEDS: PANTOPRAZOLE 40 MG TABEC PO SCH (09:14)
--- NOTE | 2018-11-03 09:18 | NUR ---
ASSISTED PT TO USE THE BATHROOM. HE HAS 1 BM. ADMINISTERED MEDS PER MD ORDER. HELD COLACE AND LACTOLOSE DUE TO DIARRHEA.
--- NOTE | 2018-11-03 10:57 | NUR ---
PATIENT IS RESTING ON BED. NO SIGNS OF DISTRESS NOTED. URANAL AND BEDSIDE COMMODE ARE NEXT TO BED. INSTRUCTED PATIENT TO CALL FOR ASSISTANCE. WILL CONTINUE TO MONITOR.
[2018-11-03 11:58] VITALS: BP 115/69
--- NOTE | 2018-11-03 13:20 | NUR ---
PATIENT IS SLEEPING. NO SIGNS OF DISTRESS NOTED.
[2018-11-03] MEDS ORDERED: KEP500 PO ×2 (14:02→14:09)
[2018-11-03] MEDS ORDERED: THIA-4 PO (14:02)
[2018-11-03] MEDS ORDERED: LIB25 PO (14:02)
[2018-11-03] MEDS ORDERED: LACT10SO6 PO (14:02)
[2018-11-03] MEDS ORDERED: VITA1TAB44 PO (14:03)
[2018-11-03] MEDS ORDERED: PANT40EC PO (14:07)
--- NOTE | 2018-11-03 15:25 | NUR ---
DR DE LA CRUZ HAS PLACED THE DISCHARGE ORDER. PATIENT IS GETTING READY TO BE DISCHARGED. FAMILY IS AT BEDSIDE. NO SIGNS OF DISTRESS NOTED. Addendum: 11/03/18 at 1751 by Oriana Segura RN AWAITING DISCHARGE INSTRUCTION FROM DR DE LA CRUZ.
--- NOTE | 2018-11-03 16:15 | NUR ---
WAITING FOR FAMILY TO ARRIVE TO RETAIL MANAGEMENT KEYHOLDER PATIENT.
--- NOTE | 2018-11-03 17:02 | NUR ---
DISCHARGE INSTRUCTION AND MEDICATION PRESCRIPTION GIVEN TO PATIENT. PROVIDED MEDICATION EDUCATION, DIET REGIMEN,REMIND PATIENT NOT TO DRIVE UNTIL CLEAR BY NEOLOGIST, INSTRUCTION TO FOLLOW UP WITH PRIMARY CARE PHYSICIAN WITHIN ONE WEEK TO PATIENT AND COUSIN LU[place]. ANSWERS ALL PATIENT'S AND COUSIN'S QUESTIONS. PATIENT AND COUSIN VERBALIZED UNDERSTANDING. PATIENT SIGNED ALL DISCHARGE DOCUMENTS AND GOT ALL HIS BELONGINGS. ARMBANDS REMOVED.[facility]. PATIENT IS IN STABLE CONDITION. PATIENT IS DISCHARGED AT THIS TIME.
== END 2018-11-03 17:02 | disposition home or self-care (01) | DRG 242 ==
LOC: MED 21:13 → EDBD 10-31 01:27 → MIC 10-31 01:27 → MTU 11-01 18:50
PROVIDERS: ADMIT General Practice; ATTEND General Practice
PROC: 30233N1 Transfusion of Nonautologous Red Blood Cells into Peripheral Vein, Percutaneous Approach (ICD-10-PCS; 2018-10-31)
PROC: 0W3P8ZZ Control Bleeding in Gastrointestinal Tract, Via Natural or Artificial Opening Endoscopic (ICD-10-PCS; principal; 2018-10-31 12:30)
DX: K22.6 Gastro-esophageal laceration-hemorrhage syndrome (principal); N17.0 Acute kidney failure with tubular necrosis; E43 Unspecified severe protein-calorie malnutrition; D68.9 Coagulation defect, unspecified; K57.31 Diverticulosis of large intestine without perforation or abscess with bleeding; D62 Acute posthemorrhagic anemia; E11.65 Type 2 diabetes mellitus with hyperglycemia; D69.6 Thrombocytopenia, unspecified; K70.9 Alcoholic liver disease, unspecified; K25.4 Chronic or unspecified gastric ulcer with hemorrhage; K92.0 Hematemesis; E83.42 Hypomagnesemia; E87.1 Hypo-osmolality and hyponatremia; E51.2 Wernicke's encephalopathy; F10.239 Alcohol dependence with withdrawal, unspecified; E87.6 Hypokalemia; G40.909 Epilepsy, unspecified, not intractable, without status epilepticus; F17.210 Nicotine dependence, cigarettes, uncomplicated; K29.20 Alcoholic gastritis without bleeding; D72.829 Elevated white blood cell count, unspecified; K80.20 Calculus of gallbladder without cholecystitis without obstruction; K22.10 Ulcer of esophagus without bleeding; E86.0 Dehydration; K25.9 Gastric ulcer, unspecified as acute or chronic, without hemorrhage or perforation; Z83.3 Family history of diabetes mellitus; Z80.9 Family history of malignant neoplasm, unspecified; Z68.26 Body mass index [BMI] 26.0-26.9, adult
CPT/HCPCS: 36415; 36430; 70450; 71045; 76705; 80048; 80053; 80305; 81003; 82009; 82140; 82272; 82948; 83036; 83690; 83735; 83880; 84100; 84443; 84484; 85025; 85610; 85730; 86886; 86900; 86901; 86920; 87081; 92610; 93005; 96361; 96365; 96375; 99291; A9153; C9113; G0482; J0171; J1815; J1953; J2001; J2060; J2250; J2270; J3010; J3411; J3475; J3480; J3490; J7030; J7042; P9016; Q0092; Q0163